=== PATIENT | female | born 1965 | race Caucasian/White ===

== ENCOUNTER 2017-01-09 18:19 | Emergency (ER) | payer SELFPAY ==
[~2017-01-09 18:19] MED LIST: AMBIEN10 M1 PO; CLONAZEPAM1 M2 PO; CLONAZEPAM1 MG PO; CYCLOBENZAPRINE10 M1 PO; IBUPROFEN600 M1 PO; IBUPROFEN800 M1 PO; NAPROSYN500 M1 PO; NAPROSYN500 MG PO; NEXIUM20 M1 PO; NEXIUM40 MG PO; NORCO 5-325 TA1 EACH PO; NORCO 5/325 TAB1 TAB PO; PREDNISONE10 M1 PO; PROPRANOL PO; PROZAC20 M3 PO; PROZAC40 M1 PO; PROZAC40 MG PO; SKELAXIN800 M1 PO; TYLENOL EXTRA500 M1 PO; ZOFRAN ODT4 MG PO
[2017-01-09] MEDS ORDERED: VORTIOXETINE (18:32)
[2017-01-09] MEDS ORDERED: SKELAXIN800 M3 PO (18:47)
== END 2017-01-09 19:30 ==
LOC: EDMED 18:19
DX: M54.9 Dorsalgia, unspecified (principal); G89.29 Other chronic pain; F17.200 Nicotine dependence, unspecified, uncomplicated; F43.29 Adjustment disorder with other symptoms; Z79.899 Other long term (current) drug therapy